=== PATIENT | male | born 1980 | race Caucasian/White ===

== ENCOUNTER 2024-03-21 08:23 | Emergency (ER) | payer SELFPAY ==
[~2024-03-21] VITALS: Ht 180.3 cm; Wt 91.5 kg
[2024-03-21] MEDS ORDERED: CLONIDINE PO (08:40)
[2024-03-21 09:07] LABS: BASO # 0.04 K/mm3 (0.02-0.10); EOS # 0.02 K/mm3 (0.04-0.40); EOS % 0.2 % (0.0-4.0); HEMATOCRIT 44.8 % (42.0-52.0); HEMOGLOBIN 15.4 g/dL (13.5-18.0); LYMPH# 1.74 K/mm3 (1.50-4.00); MEAN CELL VOLUME 87 fl (78-100); MEAN CORPUSCULAR HEMOGLOBIN 30 pg (27-31); MEAN CORPUSCULAR HGB CONC 34 g/dL (33-37); MEAN PLATELET VOLUME 9.7 fl (7.4-10.4); MONO # 0.45 K/mm3 (0.20-0.80); NEU # 6.64 K/mm3 (1.40-6.50); PLATELET COUNT 306 K/mm3 (130-400); RED BLOOD COUNT 5.13 M/mm3 (4.20-5.60); RED CELL DISTRIBUTION WIDTH 12.9 % (11.5-14.5); WHITE BLOOD COUNT 8.9 K/mm3 (4.8-10.8)
[2024-03-21 09:15] LABS: ALBUMIN 4.4 g/dL (3.5-5.0)
[2024-03-21 09:17] LABS: CALCIUM 9.3 mg/dL (8.3-10.5)
[2024-03-21 09:18] LABS: TOTAL PROTEIN 6.9 g/dL (6.4-8.3)
[2024-03-21 09:20] LABS: TOTAL BILIRUBIN 0.3 mg/dL (0.2-1.2)
[2024-03-21 09:24] LABS: MAGNESIUM 1.88 mg/dL (1.60-2.60)
[2024-03-21 10:45] LABS: URINE APPEARANCE CLEAR (CLEAR); URINE COLOR YELLOW (YELLOW)
[2024-03-21 10:48] LABS: PH-URINE 8.5 (5.0 - 8.0); URINE BILIRUBIN NEGATIVE (NEGATIVE); URINE BLOOD NEGATIVE (NEGATIVE); URINE GLUCOSE NEGATIVE (NEGATIVE); URINE KETONE NEGATIVE (NEGATIVE); URINE LEUKOCYTE ESTERASE TRACE (NEGATIVE); URINE NITRATE NEGATIVE (NEGATIVE); URINE PROTEIN(semi-quant) 1+ (NEGATIVE); URINE WBC 16-30 /hpf (0-3)
[2024-03-21] MEDS ORDERED: CIPRO500 M1 PO (11:02)
[2024-03-21] MEDS ORDERED: Ciprofloxacin 250 MG TAB PO ONE ×2 (11:15)
[2024-03-21 11:34] VITALS: BP 130/84
== END 2024-03-21 11:37 | disposition home or self-care (01) ==
LOC: ED 08:23
PROVIDERS: Nurse Practitioner Family
DX: R11.2 Nausea with vomiting, unspecified (principal); R82.71 Bacteriuria; E87.5 Hyperkalemia; F17.210 Nicotine dependence, cigarettes, uncomplicated
CPT/HCPCS: J0780; J7120